=== PATIENT | female | born 1990 | race Caucasian/White ===

== ENCOUNTER 2020-06-12 15:14 | Outpatient (CLI) | payer BC, SELFPAY ==
--- NOTE | ~2020-06-12 | US_ITS ---
US breast RT limited INDICATION: Palpable breast abnormality. Grandmother had breast cancer. TECHNIQUE: Dedicated right limited breast ultrasound COMPARISON: No prior studies for comparison. FINDINGS: The right breast is composed of normal heterogeneous echotexture without focal solid or cys tic mass. IMPRESSION: 1: Normal limited right breast ultrasound. BI-RADS CATEGORY 1 - NEGATIVE Reviewed, dictated and finalized at location A.
== END 2020-06-12 15:15 | disposition home or self-care (01) ==
PROVIDERS: PCP Emergency Medicine; Visit Provider Emergency Medicine
DX: N64.4 Mastodynia (principal)
CPT/HCPCS: 76642